=== PATIENT | female | born 1970 ===

== ENCOUNTER 2018-08-08 10:42 | Emergency (ER) | payer MEDICAID ==
[2018-08-08 10:42] VITALS: BMI 27.1
[2018-08-08 10:48] VITALS: TEMP 98.3; O2SAT 100
[2018-08-08] MEDS ORDERED: DiphenhydrAMINE 50 mg/ml Inj ONE (11:41)
--- NOTE | 2018-08-08 11:59 | CT ---
Date of service: 08/08/2018 PROCEDURE: CT HEAD WITHOUT CONTRAST. HISTORY: Headache. Evaluate for hemorrhage. COMPARISON: None available. TECHNIQUE: Axial computed tomography images were obtained through the head/brain without intravenous contrast. Radiation dose: Total exam DLP = 1087.11 mGy-cm. This CT exam was performed using one or more of the following dose reduction techniques: Automated exposure control, adjustment of the mA and/or kV according to patient size, and/or use of iterative reconstruction technique. FINDINGS: HEMORRHAGE: No intracranial hemorrhage. BRAIN: No mass effect or edema. No atrophy or chronic microvascular ischemic changes. Punctate hypodensity in the left basal ganglia may represent a prominent perivascular space. Punctate left basal ganglia calcification. VENTRICLES: Unremarkable. No hydrocephalus. CALVARIUM: Unremarkable. PARANASAL SINUSES: Unremarkable as visualized. No significant inflammatory changes. MASTOID AIR CELLS: Unremarkable as visualized. No inflammatory changes. OTHER FINDINGS: None. IMPRESSION: No acute intracranial abnormality. If symptoms persists, consider correlation with MRI.
[2018-08-08 12:03] LABS: HCG,QUALITATIVE URINE NEGATIVE (NEGATIVE)
--- NOTE | 2018-08-08 12:03 | C.PDOC ---
History Of Present Illness 47 y/o female presents to ED complaining of a headache since last night, associated with numbness in bilateral arms. Patient states she also woke up this morning with redness and swelling around both eyes. Patient denies any fever, nasal congestion, cough, SOB, chest pain, or other complaints. Time Seen by Provider: 08/08/18 11:10 Chief Complaint (Nursing): Headache History Per: Patient History/Exam Limitations: no limitations Onset/Duration Of Symptoms: Hrs Current Symptoms Are (Timing): Still Present Past Medical History Reviewed: Historical Data, Nursing Documentation, Vital Signs Vital Signs: Last Vital Signs Temp 98.3 F 08/08/18 10:47 Pulse 68 08/08/18 10:47 Resp 20 08/08/18 10:47 BP 135/85 08/08/18 10:47 Pulse Ox 100 08/08/18 10:47 - Medical History PMH: Arthritis Family History: States: No Known Family Hx - Social History Hx Tobacco Use: No Hx Alcohol Use: No Hx Substance Use: No - Immunization History Hx Tetanus Toxoid Vaccination: No Hx Influenza Vaccination: No Hx Pneumococcal Vaccination: No Review Of Systems Except As Marked, All Systems Reviewed And Found Negative. Constitutional: Negative for: Fever Eyes: Positive for: Redness (and swelling in both eyes) ENT: Negative for: Nose Congestion Cardiovascular: Negative for: Chest Pain Respiratory: Negative for: Cough, Shortness of Breath Gastrointestinal: Negative for: Nausea, Vomiting, Abdominal Pain Neurological: Positive for: Numbness (in bilateral arms), Headache Physical Exam - Physical Exam Appears: Non-toxic, No Acute Distress Skin: Warm, Dry Head: Atraumatic, Normacephalic Eye(s): bilateral: Other (periorbital erythema and mild swelling in both eyes, no tenderness) Oral Mucosa: Moist Neck: Supple Chest: Symmetrical Cardiovascular: Rhythm Regular, No Murmur Respiratory: Normal Breath Sounds, No Rales, No Rhonchi, No Wheezing Gastrointestinal/Abdominal: Soft, No Tenderness Extremity: Bilateral: Atraumatic, Normal ROM Neurological/Psych: Oriented x3, Normal Speech, Normal Cognition ED Course And Treatment - Laboratory Results Result Diagrams: 08/08/18 12:21 Lab Interpretation: No Acute Changes O2 Sat by Pulse Oximetry: 100 (RA) Pulse Ox Interpretation: Normal - CT Scan/US Head CT Other Rad Studies (CT/US): Read By Radiologist, Radiology Report Reviewed CT/US Interpretation: FINDINGS: HEMORRHAGE: No intracranial hemorrhage. BRAIN: No mass effect or edema. No atrophy or chronic microvascular ischemic changes. Punctate hypodensity in the left basal ganglia may represent a prominent perivascular space. Punctate left basal ganglia calcification. VENTRICLES: Unremarkable. No hydrocephalus. CALVARIUM: Unremarkable. PARANASAL SINUSES: Unremarkable as visualized. No significant inflammatory changes. MASTOID AIR CELLS: Unremarkable as visualized. No inflammatory changes. OTHER FINDINGS: None. IMPRESSION: No acute intracranial abnormality. If symptoms persists, consider correlation with MRI. Reassessment Condition: Improved Medical Decision Making Medical Decision Making: Plan: --Head CT --Labs --UA --Urine Culture --Benadryl 25 mg PO --Solumedrol 125 mg IV --Toradol 30 mg IVP Disposition Counseled Patient/Family Regarding: Diagnosis, Need For Followup, Rx Given - Disposition Referrals: Tacho Haas MD [Medical Doctor] - Disposition: HOME/ ROUTINE Disposition Time: 12:40 Condition: STABLE Prescriptions: DiphenhydrAMINE [Benadryl] 25 mg PO TID 5 Days cap predniSONE [predniSONE Tab] 20 mg PO DAILY #4 tab Instructions: Headache, Adult (DC), Drug Allergy Forms: [facility] (Citizen Of [place]), Work Excuse, Gen Discharge Inst [place], General Discharge Instructions Print Language: FILIPINO - POA Present On Arrival: None - Clinical Impression Clinical Impression: Headache, Allergic reaction - Scribe Statement The provider has reviewed the documentation as recorded by the Nancy Parker Provider Attestation: All medical record entries made by the Shannanibmarko were at my direction and personally dictated by me. I have reviewed the chart and agree that the record accurately reflects my personal performance of the history, physical exam, medical decision making, and the department course for this patient. I have also personally directed, reviewed, and agree with the discharge instructions and disposition.
[2018-08-08] MEDS ORDERED: DiphenhydrAMINE 50 mg/ml Inj IVP STA (12:05)
[2018-08-08 12:17] LABS: SQUAMOUS EPITHIAL 3 /hpf (0-5); URINE BACTERIA OCC (<OCC)
[2018-08-08 12:22] LABS: URINE BILIRUBIN NEGATIVE (NEGATIVE); URINE BLOOD NEGATIVE (NEGATIVE); URINE CLARITY Clear (Clear); URINE COLOR YELLOW (YELLOW); URINE GLUCOSE (UA) NEGATIVE (Normal); URINE LEUKOCYTE ESTERASE NEGATIVE Leu/uL (Negative); URINE PROTEIN NEGATIVE (NEGATIVE); URINE UROBILINOGEN 0.2 mg/dL (0.2-1.0)
[2018-08-08 12:30] LABS: BASO # 0.1 K/uL (0.0-0.2); BASO % 0.8 % (0.0-2.0); EOS # 0.1 K/uL (0.0-0.7); EOS % 0.9 % (0.0-4.0); HEMOGLOBIN 12.7 g/dL (11.0-16.0); LYMPH # 1.6 K/uL (1.0-4.3); LYMPH % 25.1 % (20.0-40.0); MEAN CELL VOLUME 94.7 fL (81.0-99.0); MEAN CORPUSCULAR HEMOGLOBIN 32.3 pg (27.0-31.0); MEAN CORPUSCULAR HGB CONC 34.1 g/dL (33.0-37.0); MEAN PLATELET VOLUME 8.8 fL (7.2-11.7); MONO # 0.5 K/uL (0.0-0.8); MONO % 8.3 % (0.0-10.0); NEUT # 4.1 K/uL (1.8-7.0); NEUT % 64.9 % (50.0-75.0); RBC 3.93 Mil/uL (3.80-5.20); RED CELL DISTRIBUTION WIDTH 13.2 % (11.5-14.5); WHITE BLOOD COUNT 6.4 K/uL (4.8-10.8)
[2018-08-08 12:48] LABS: BLOOD UREA NITROGEN 13 mg/dL (7-17); CALCIUM 9.2 mg/dl (8.6-10.4); GFR NON-AFRICAN AMERICAN > 60
[2018-08-08 13:04] VITALS: BP 131/83; PULSE 56; RESP 16
== END 2018-08-08 13:05 | disposition home or self-care (01) ==
LOC: C.ER 10:42
DX: R51 Headache (principal); T78.40XA Allergy, unspecified, initial encounter
CPT/HCPCS: 70450; 80048; 81001; 82948; 84703; 85025; 87086; 96374; 96375; 99285; J1200; J1885; J2930